=== PATIENT | female | born 1950 | race Caucasian/White ===

== ENCOUNTER 2021-04-06 12:35 | Emergency (ER) | payer MEDICARE ==
[~2021-04-06 12:35] MED LIST: ANTIVERT25 MG PO; ASPIRIN EC81 MG PO; FIORICET1 EACH PO; KLONOPIN0.5 MG PO; LAMICTAL100 MG PO; LIPITOR40 MG PO; TOPROL XL 50 MG50 MG PO
[2021-04-06 13:57] LABS: BASOPHIL 0.5 % (0-2); EOSINOPHIL 1.4 % (0-7); HCT 42.4 % (37.0-47.0); HGB 13.9 g/dl (12.5-16.0); LYMPHOCYTE 40.3 % (15-48); MCH 30.4 pg (25.0-31.0); MCHC 32.8 g/dL (32.0-36.0); MCV 92.8 fL (78.0-100.0); MONOCYTE 7.1 % (0-12); NEUTROPHIL 50.6 % (41-80); NRBC 0; PLT 214 K/uL (150-400); RBC 4.57 M/uL (4.20-5.40); RDW 13.6 % (11.5-14.0); WBC 7.3 K/uL (4.0-10.5)
[2021-04-06 14:01] LABS: INR 0.97 (0.9-1.2); PROTHROMBIN TIME 12.3 SECONDS (11.8-13.4); PTT 24.1 SECONDS (24.4-34.7)
[2021-04-06 14:16] LABS: BUN/CREAT RATIO (CALC) 14.1 RATIO; CREATININE 0.71 mg/dL (0.51-0.95); POTASSIUM 4.3 mmol/L (3.5-5.1)
== END 2021-04-06 15:31 | disposition home or self-care (01) ==
LOC: FER 12:35
PROVIDERS: Emergency Medicine
DX: R42 Dizziness and giddiness (principal); I10 Essential (primary) hypertension; J44.9 Chronic obstructive pulmonary disease, unspecified; F17.200 Nicotine dependence, unspecified, uncomplicated; Z79.899 Other long term (current) drug therapy
CPT/HCPCS: 36415; 70450; 70551; 71045; 80048; 84484; 85025; 85610; 85730; 93005